=== PATIENT | female | born 1995 | race Caucasian/White ===

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

== ENCOUNTER 2018-11-14 11:23 | Day surgery (SDC) | payer OTHER, BC ==
[~2018-11-14 11:23] MED LIST: Buffered Lidocaine 1% SYRIN* 1 ML/SYRINGE INTRADERM ONE; Lactated Ringers 1000 ML Bag* 1,000 ML IV SCH
[2018-11-14] MEDS ORDERED: ceFAZolin 2 GM in NS PREMIX(*) 2 GM/100 ML BAG IVPB ONE (11:36)
[2018-11-14] MEDS ORDERED: Lidocaine 2% PF * 5 ML VIAL ONE (12:18)
[2018-11-14] MEDS ORDERED: Propofol* 10 MG/ML 20 ML BTL ONE ×2 (12:18→12:59)
[2018-11-14] MEDS ORDERED: fentaNYL* 50 MCG/ML 2 ML VIAL (100 MCG VIAL) ONE (12:19)
[2018-11-14] MEDS ORDERED: Midazolam* 1 MG/ML 2 ML VIAL (2 MG) ONE (12:19)
[2018-11-14] MEDS ORDERED: Remifentanil* 2 MG VIAL ONE (13:06)
[2018-11-14] MEDS ORDERED: Ropivacaine 0.2% * 2 MG/ML VIAL ONE (13:06)
[2018-11-14] MEDS ORDERED: Lidocaine 1% w EPI 1:200,000* 30 ML VIAL ONE (13:06)
[2018-11-14] MEDS ORDERED: Ketorolac INJ* 30 MG/ML 1 ML VIAL ONE (13:36)
[2018-11-14] MEDS ORDERED: Dexamethasone IV* 4 MG/ML 1 ML (4 MG) ONE (13:36)
[2018-11-14] MEDS ORDERED: Ondansetron INJ* 2 MG/ML VIAL ONE (13:36)
[2018-11-14] MEDS ORDERED: Metoclopramide IV* 5 MG/ML 2 ML VIAL ONE (13:36)
[2018-11-14] MEDS ORDERED: HYDROcodone/ACETAMIN 5-325 MG* 1 TAB PO PRN (13:54)
[2018-11-14] MEDS ORDERED: Acetaminophen TAB* 325 MG PO PRN (13:54)
[2018-11-14] MEDS ORDERED: DiMENhydriNATE IV* 50 MG/ML VIAL IV PUSH PRN (13:54)
[2018-11-14] MEDS ORDERED: fentaNYL* 50 MCG/ML 2 ML VIAL (100 MCG VIAL) IV PRN (13:54)
[2018-11-14] MEDS ORDERED: Naloxone* 0.4 MG/ML 1 ML VIAL IV PRN (13:54)
[2018-11-14] MEDS ORDERED: HYDROcodone/ACETAMIN 5-325 MG* 1 TAB ONE (15:29)
[2018-11-14 16:11] VITALS: BP 108/64
--- NOTE | 2018-11-14 17:18 | OP ---
DATE OF OPERATION: 11/14/18 - [facility] DATE OF : [birth year] SURGEON: Bety Howard MD. PLANT OPERATOR/SHIFT SUPERVISOR: DEB Ballard. An undertaker assistant was needed for the entirety of the case to help with positioning, retraction, and was utilized throughout all portions of the case. ANESTHESIOLOGIST: Dr. Denny. ANESTHESIA: General. PRE-OP DIAGNOSIS: Right knee medial meniscus retear. POST-OP DIAGNOSIS: Right knee medial meniscus retear. OPERATIVE PROCEDURE: Right knee medial meniscus repair through a separate incision using an outside-in technique. This is a revision surgery; please add 22 modifier due to complexity needing for a separate incision. COMPLICATIONS: None. ESTIMATED BLOOD LOSS: Minimal. TOURNIQUET TIME: Zero minutes. INDICATIONS: Yaneth Castro is a 23-year-old female who presents with a knee injury potentially several months ago versus a year ago. She has had a history of medial meniscus repair x2, one was all-inside, one was inside-out, and the most recent one was in 2013. She actually noticed an injury in 2015. She continued to struggle. She had a reinjury. She saw me. She has had at least 2 MRIs and the most recent one was unequivocal, but based on her examination and her failure of conservative management, she rehabbed the last injury for 6 months with still issues and this time she was having locking, catching pain and was unable to fully extend her knee. The MRI was not very helpful, but she did also have a revision surgery previously. The MRI demonstrated a possible horizontal meniscus tear. The patient continued to struggle. We reviewed the risks and benefits of surgery. Risks included, but are not limited to bleeding , infection, damage to nerves; vessels; surrounding structures, wound nonhealing , persistent pain, need for further surgery, scarring, stiffness, incomplete relief of symptoms, risks of anesthesia, risk of DVT, failure of the repair, risk of arthritis. She has elected to proceed. DESCRIPTION OF PROCEDURE: The patient was greeted in the preoperative area by the attending surgeon. Correct extremity was marked and consent was confirmed. The patient was brought back to the operating suite, where she was placed in the supine position on the operating table. She then underwent general anesthesia and LMA intubation, after which a lateral post was positioned. An unsterile tourniquet was placed high on the proximal thigh. The right leg was then prepped and draped in the usual sterile fashion beginning with chlorhexidine soap, scrub, and alcohol wipe, and a final prep with ChloraPrep. After appropriate surgical pause indicating the site, side, procedure, and administration of antibiotics, the knee was intra-articularly injected with 1% lidocaine with epi. An anterolateral incision was then made using an 11-blade. Scope was introduced into the joint and the joint was examined. There was synovitis anteriorly. Anteromedial portal was made in an outside-in fashion. Shaver was used to debride back the synovitic fat pad. There was a small area about the lateral femoral condyle with some mild chondrosis on the weightbearing zone, very medial part of the lateral femoral condyle, and this was debrided back and a small chondroplasty done. The patellofemoral joint had grade 0 to 1 changes. The medial and lateral gutters were intact without any loose debris. Once the synovitis was removed, attention was directed to the medial meniscus. There was evidence at the very medial aspect where her previous repair had happened that there was tearing from the capsule. There was patulous capsule that was present there. The meniscus quality was okay, but not perfectly normal. The decision was made to repair it because this patient is 23 years old and she would like to try for another repair that this is an option. We talked about the recovery time as her previous surgery she was nonweightbearing, but she had full range of motion post operative. She also may have injured this some time ago; but, because of where the tear was, at this point decision was made to try to repair this. The rasp was used to rasp the capsule because the most superior portion was good enough tissue as well as the back of the meniscus. Care was taken to try to preserve as much meniscus as possible. The previous sutures that were passed from the inside-out surgery were then debrided back. The sutures were then removed. They were cut and then taken out. At this point, the outside-in tray was opened and two 18-gauge needles were passed through the medial aspect of the knee in an outside-in fashion. Once they were appropriately positioned, a 2-0 PDS suture was then passed carefully. Once this was passed, a second suture was placed in a similar fashion percutaneously. I attempted to pass one more, but there was not a lot of space left and I did not want to damage the previously passed sutures. The tension on sutures brought the meniscus close to the capsule and closed the meniscocapsular separation. The decision was made to be satisfied with that. At this point, the scope was removed from the joint and a medial incision was made around where the sutures were. Soft tissues were carefully dissected to expose the capsule. When that was identified, the previous sutures were then passed through the wound instead of through the skin and then a 2-0 Ti-Cron was tied to the end of each of the PDS sutures and passed through. The 2-0 Ti-Crons were then tied down with the knee in about 30 degrees of flexion with some valgus stress due to the appropriate tightness. Care was taken not to overtighten or to pull through the capsule. At this point , once this was tied down, the scope was brought back to the joint and it was examined. There was a good amount of bleeding that was there at the site and the meniscus was found to be well approximated. At this point, the knee was taken to 90 degrees and the sutures still held traction. A Loami awl was then used to do bone marrow aspiration in the notch to allow for further bony bleeding and to allow for this to heal. The wounds were then copiously irrigated with sterile saline. Portals were closed with 3-0 nylon. The skin was closed in layers with 3-0 Monocryl in a subcutaneous and running fashion. Sterile dressings were applied. The wound was injected with 0.25% ropivacaine. The Cryo/Cuff was applied as well as a hinged knee brace with range of motion 0 to 60 degrees. She was awoken from anesthesia and transferred to the PACU in stable condition. POSTOPERATIVE PLAN: She will be nonweightbearing. She will be in the brace for approximately 4 weeks, first range of motion 0 to 60 degrees, then we will progress her slowly. DVT prophylaxis was considered, but deferred due to no previous personal or family history. I will see the patient back in 10 to 14 days. [id number]/[facility] #: [id number] VELVET
== END 2018-11-14 15:54 | disposition home or self-care (01) ==
LOC: OREAST 11:23
PROVIDERS: ATTEND Orthopaedic Surgery
DX: S83.241A Other tear of medial meniscus, current injury, right knee, initial encounter (principal); M25.461 Effusion, right knee; X50.0XXA Overexertion from strenuous movement or load, initial encounter; Y92.9 Unspecified place or not applicable; J45.909 Unspecified asthma, uncomplicated
CPT/HCPCS: 81025; J0690; J1100; J1885; J2001; J2250; J2405; J2704; J2765; J2795; J3010

== ENCOUNTER 2019-05-17 01:06 | Emergency (ER) | payer BC, OTHER ==
--- NOTE | 2019-05-17 01:50 | ED ---
Substance Abuse/Use - HPI Summary HPI Summary: Pt is a 23 y/o F presenting to the ED brought in by EMS and [facility] on a 22.09 and 9.41. LEVEL 5 CAVEAT: Pts full hx and physical is unobtainable d/t EtOH intoxication. She admits alcohol use, denies drug use. She reported SI to triage nurse, EMS, and [facility]. She states she is here because shes crazy. She sees a counselor and has daily medication. She reports nausea. - History Of Current Complaint Chief Complaint: EDMentalHealth Stated Complaint: ETOH PER EMS Time Seen by Provider: 05/17/19 01:08 Hx Obtained From: Patient, EMS ?: No - IUD Onset/Duration of Drug/ETOH Abuse: Hours Overdose Characteristics: Oral Timing Of Abuse: Binge Use Severity Initially: Moderate Severity Currently: Moderate Character: Depressed, Anxious, Lethargic, Stuporous Aggravating Factor(s): Nothing Alleviating Factor(s): Nothing Associated Signs And Symptoms: Nausea Related Hx: Suicidal - Allergies/Home Medications Allergies/Adverse Reactions: Allergies Allergy/AdvReac Type Severity Reaction Status Date / Time No Known Allergies Allergy Verified 05/17/19 02:01 Home Medications: Home Medications NK [No Home Medications Reported] 05/17/19 [History Confirmed 05/17/19] PMH/Surg Hx/FS Hx/Imm Hx Previously Healthy: Yes Endocrine/Hematology History: Reports: Hx Anemia - hx Denies: Hx Diabetes Cardiovascular History: Denies: Hx Hypertension, Hx Pacemaker/ICD Respiratory History: Reports: Hx Asthma - excersized as a child Denies: Other Respiratory Problems/Disorders GI History: Reports: Other GI Disorders - colitis as a child History: Denies: Hx Renal Disease Musculoskeletal History: Reports: Hx Orthopedic Injury - r and l labral tears, r meniscal/mcl repair, Other Musculoskeletal History - right knee r/t injury Sensory History: Reports: Hx Contacts or Glasses - glasses Denies: Hx Hearing Aid Opthamlomology History: Reports: Hx Contacts or Glasses - glasses Psychiatric History: Reports: Hx Anxiety - "hyperventilation" Denies: Hx Panic Disorder - Surgical History Surgery Procedure, Year, and Place: 3 repairs of acetabular labrum- bilateral; 2 surgeries on r knee to reattach meniscus to MCL. LATERAL RELEASE IN LEFT KNEE 2013 Hx Anesthesia Reactions: Yes - nausea Infectious Disease History: No Infectious Disease History: Denies: Traveled Outside the [place] in Last 30 Days - Family History Known Family History: Negative: Cardiac Disease, Diabetes - Social History Alcohol Use: Occasionally Alcohol Amount: 2 per week Hx Substance Use: No Substance Use Type: Reports: None Hx Tobacco Use: No Smoking Status (MU): Never Smoked Tobacco Review of Systems - ROS Summary Review of Systems Summary: Home Medications Medication Instructions Recorded Confirmed Type Acetaminophen [Tylenol] 650 mg PO DAILY PRN 11/10/18 11/10/18 History Positive: Nausea Positive: Anxious, Depressed All Other Systems Reviewed And Are Negative: No Physical Exam - Summary Physical Exam Summary: General: Well-developed, thin female. No acute distress. HEENT: Normocephalic, Atraumatic. Eyes: Conjuctiva normal, PERRL. Oropharynx: Clear, mucous membranes moist, (-) exudates. Neck: Soft, FROM, (-) lymphadenopathy, (-) thyromegaly, (-) JVD. Cardiovascular: Normal sinus rhythm, (-) murmur. Lungs: Clear to auscultation bilaterally (-) wheezes, (-) rales, (-) rhonchi. Abdomen: Soft, non-tender, non-distended, (-) organomegaly, normal bowel sounds. Back: (-) CVA tenderness Extremities: No edema. Skin: Warm, dry, (-) rash. Neuro: Sleepy but rousable. Psychiatric: Alternates from crying to anxious-appearing, and is moderately agitated at times. Triage Information Reviewed: Yes Vital Signs On Initial Exam: Initial Vitals Temp Pulse Resp BP Pulse Ox 97.8 F 99 15 115/76 97 05/17/19 01:17 05/17/19 01:17 05/17/19 01:17 05/17/19 01:17 05/17/19 01:17 Vital Signs Reviewed: Yes Completion Of Physical Exam Limited Due To: Level 5 Procedures - Sedation Patient Received Moderate/Deep Sedation with Procedure: No Diagnostics - Vital Signs Vital Signs Temp Pulse Resp BP Pulse Ox 05/17/19 01:17 97.8 F 99 15 115/76 97 - Laboratory Result Diagrams: 05/17/19 02:05 05/17/19 02:06 Lab Statement: Any lab studies that have been ordered have been reviewed, and results considered in the medical decision making process. Course/Dx - Course Course Of Treatment: 23-year-old female with acute alcohol intoxication. Patient has been telling multiple people today she wants to kill herself. At times she will deny that but then say again that she wants to kill herself. She calls herself crazy. She is a very poor historian at this time. Unable to obtain an adequate history or review of systems from the patient. Patient rests overnight. Given time to sober up awaiting mental health evaluation. Patient signed out at change of shift. - Diagnoses Provider Diagnoses: Alcohol intoxication Discharge ED - Sign-Out/Discharge Documenting (check all that apply): Sign-Out Patient - sobriety Signing out patient TO: Nnamdi Hsu - Discharge Plan Referrals: [facility] [Outside] - Attestation Statements Document Initiated by Justine: Yes Documenting Scribe: Jyothi Mcnair Provider For Whom Justine is Documenting (Include Credential): Juliana Mckinney MD. Scribe Attestation: Jyothi Chavez scribed for Juliana Mckinney MD. on 05/17/19 at 0516. Scribe Documentation Reviewed: Yes Provider Attestation: The documentation as recorded by the Jyothi doherty accurately reflects the service I personally performed and the decisions made by Juliana skaggs MD. Status of Scribe Document: Viewed
[2019-05-17 02:08] LABS: Urine Appearance Clear; Urine Bilirubin Negative (Negative); Urine Blood Negative (Negative); Urine Color Straw; Urine Glucose Negative (Negative); Urine Ketones Negative (Negative); Urine Nitrite Negative (Negative); Urine Protein Negative (Negative); Urine Specific Gravity 1.002 (1.010-1.030); Urine Urobilinogen Negative (Negative)
[2019-05-17 02:13] LABS: ABS Basophils 0.1 10^3/ul (0-0.2); ABS Eosinophils 0.1 10^3/ul (0-0.6); ABS Lymphocytes 3.2 10^3/ul (1.0-4.8); ABS Monocytes 0.7 10^3/ul (0-0.8); ABS Neutrophils 4.8 10^3/ul (1.5-7.7); Eosinophil % 0.8 %; Hematocrit 40 % (35-47); Hemoglobin 13.9 g/dL (12.0-16.0); Lymphocyte % 36.1 %; Mean Corpuscular HGB Conc 35 g/dL (31-36); Mean Corpuscular Hemoglobin 31 pg (27-31); Mean Corpuscular Volume 89 fL (80-97); Platelet Count 346 10^3/uL (150-450); Red Blood Count 4.48 10^6 /uL (3.70-4.87); Red Cell Distribution Width 12 % (10-15); White Blood Count 8.9 10^3/uL (3.5-10.8)
[2019-05-17 02:29] LABS: ALT 32 U/L (7-52); AST 36 U/L (13-39); Albumin 4.8 g/dL (3.2-5.2); Albumin/Globulin Ratio 1.8 (1-3); Alkaline Phosphatase 50 U/L (34-104); Anion Gap 9 mmol/L (2-11); BUN/Creatinine Ratio 16.7 (8-20); Blood Urea Nitrogen 11 mg/dL (6-24); CO2 Carbon Dioxide 25 mmol/L (22-32); Chloride 110 mmol/L (101-111); EGFR African American 136.8 (>60); EGFR Non-African American 113.1 (>60); Globulin 2.6 g/dL (2-4); Glucose 93 mg/dL (70-100); Potassium 3.7 mmol/L (3.5-5.0); Sodium 144 mmol/L (135-145); Total Protein 7.4 g/dL (6.4-8.9)
[2019-05-17 02:32] LABS: Acetaminophen < 15 mcg/mL; Alcohol 305 mg/dL (<10); Salicylate < 2.50 mg/dL (<30)
[2019-05-17 02:36] LABS: HCG Pregnancy < 0.60 mIU/mL
[2019-05-17 02:40] LABS: Urine Benzodiazepine Screen None Detected (None Detect); Urine Opiates Screen None Detected (None Detect)
[2019-05-17 02:48] LABS: TSH (Thyroid Stimulating Horm) 1.42 mcIU/mL (0.34-5.60)
--- NOTE | 2019-05-17 07:14 | ED ---
Progress - Progress Note Progress Note: This pt is a sign out to Dr. Hsu from Dr. Mckinney at shift change 05/17/2019 0700 pending sobriety and a MHE. Course/Dx - Course Course Of Treatment: This pt is a sign out to Dr. Hsu from Dr. Mckinney at shift change 05/17/2019 0700 pending sobriety and a MHE. Pt is awake and alert. Clinically sober without any SI or HI. Feels safe for discharge home with boyfriend. 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 She will be discharged home with a Dx of acute alcohol intoxication. - Diagnoses Provider Diagnoses: Alcohol intoxication Discharge ED - Sign-Out/Discharge Documenting (check all that apply): Patient Departure - discharge , Receiving Sign-Out Receiving patient FROM: Juliana Mckinney - Discharge Plan Condition: Stable Disposition: HOME Patient Education Materials: Alcohol Intoxication (ED) Referrals: [facility] @ [facility] [Outside] - 2 Days Additional Instructions: PLEASE FOLLOW UP WITH [facility] IN 1-3 DAYS AND RETURN TO THE EMERGENCY DEPARTMENT FOR ANY NEW OR WORSENING SYMPTOMS. - Attestation Statements Document Initiated by Scribe: Yes Documenting Scribe: Apollo Garcia Provider For Whom Scribe is Documenting (Include Credential): Nnamdi Hsu DO Scribe Attestation: Apollo Chavez, scribed for Nnamdi Hsu DO on 05/17/19 at 1148. Status of Scribe Document: Ready
--- OUTSIDE RECORDS SUMMARY | 2019-05-17 07:55 | XMS REPORT | Continuity of Care Document ---
:1995 External Reference #:[id number] Author Name Bety Howard MD (transmitted by agent of provider Roberto Valderrama) Address [address], [place] [address] Care Team Providers Name Role Phone [facility] Care Team Information [employer] [phone] Problems Active Problems Provider Date Knee joint effusion Bety Howard MD Onset: 10/11/2018 Knee pain Bety Howard MD Onset: 10/11/2018 Current tear of medial cartilage AND/OR meniscus Bety Howard MD Onset: 03/2019 of knee Derangement of knee Bety Howard MD Onset: 04/18/2019 Fall Bety Howard MD Onset: 04/18/2019 Social History Type Date Description Comments Sex Unknown ETOH Use Occasionally consumes alcohol Tobacco Use Start: Unknown Patient has never smoked Smoking Status Reviewed: 04/18/19 Patient has never smoked Exercise Type/Frequency Exercises regularly Allergies, Adverse Reactions, Alerts Description No Known Drug Allergies Medications Active Medications SIG Qnty Indications Ordering Provider Date Hydroxyzine 0.25 MG tid Unknown History Medications Medrol take as directed 21units S83.241D Bety Howard, 02/07/2019 - 4mg TBPK by packaging 04/17/2019 No Active Unknown 11/24/2018 - Medications 02/07/2019 Keflex 1 tab PO three 12caps Thien Hightower, 11/18/2018 - 500mg times daily x 7 MD 11/24/2018 Capsules days total Percocet 1 - 2 tabs by 30tabs Bety Howard, 11/14/2018 - 5-325mg mouth every 4 - 6 11/24/2018 Tablets hours as needed for pain. Keflex take 1 tab by pako Hightower, 11/14/2018 - 500mg mouth 3 times a MD 11/24/2018 Capsules day x 7 days until finished. Immunizations Description No Information Available Vital Signs Date Vital Result Comment 04/18/2019 11:22am Height 62 inches 5'2" Weight 130.00 lb pt stated preferred due to pain Heart Rate 74 /min BP Systolic 130 mmHg BP Diastolic 74 mmHg Respiratory Rate 17 /min Body Temperature 98.0 F Pain Level 6 BMI (Body Mass Index) 23.8 kg/m2 03/14/2019 3:30pm Height 62 inches 5'2" Weight 130.00 lb Heart Rate 79 /min BP Systolic 120 mmHg BP Diastolic 70 mmHg Respiratory Rate 16 /min Body Temperature 98.3 F Pain Level 1 O2 % BldC Oximetry 99 % BMI (Body Mass Index) 23.8 kg/m2 Results Description No Information Available Procedures Date Code Description Status 11/14/2018 04479 Arthroscopy,Knee,Meniscus Repair Medial Or Lateral Completed 11/14/2018 54555 Arthroscopy,Knee,Meniscus Repair Medial Or Lateral Completed Medical Devices Description No Information Available Encounters Type Date Location Provider Dx Diagnosis Office Visit 03/14/2019 [facility] Bety Howard MD S83.241D Oth tear of 3:15p at [place] medial meniscus, current injury, r knee, subs Office Visit 10/25/2018 [facility] Bety Howard MD S83.241A Oth tear of 2:15p at [place] medial meniscus, current injury, r knee, init M25.461 Effusion, right knee Assessments Date Code Description Provider 04/18/2019 S83.241D Other tear of medial meniscus, current Bety Howard MD injury, right knee, s 04/18/2019 W19.xxxA Unspecified fall, initial encounter Bety Howard MD 04/18/2019 M23.631 Other spontaneous disruption of medial Bety Howard MD collateral ligament of right knee 03/14/2019 S83.241D Other tear of medial meniscus, current Bety Howard MD injury, right knee, s 02/07/2019 S83.241D Other tear of medial meniscus, current Bety Howard MD injury, right knee, s 01/10/2019 S83.241D Other tear of medial meniscus, current Bety Howard MD injury, right knee, s 01/10/2019 M25.561 Pain in right knee Bety Howard MD 12/19/2018 S83.241D Other tear of medial meniscus, current Darlene Lantigua PA-C injury, right knee, s 12/01/2018 S83.241D Other tear of medial meniscus, current Bety Howard MD injury, right knee, s 11/24/2018 S83.241D Other tear of medial meniscus, current Bety Howard MD injury, right knee, s 11/14/2018 S83.241A Other tear of medial meniscus, current BRITTANY Ballard injury, right knee, i 11/14/2018 S83.241A Other tear of medial meniscus, current Bety Howard MD injury, right knee, i 10/25/2018 S83.241A Other tear of medial meniscus, current Bety Howard MD injury, right knee, i 10/25/2018 M25.461 Effusion, right knee Bety Howard MD Plan of Treatment Future Appointment(s):05/23/2019 10:15 am - Bety Howard MD at [id number]/18/2019 - Bety Howard MDS83.241D Other tear of medial meniscus, current injury, right knee, sFollow up:Follow up: 4 [id number] Unspecified fall, initial [id number] Other spontaneous disruption of medial collateral ligament of right knee Functional Status Description No Information Available Mental Status Description No Information Available Referrals Description No Information Available
[2019-05-17 11:56] VITALS: BP 128/78
== END 2019-05-17 11:57 | disposition home or self-care (01) ==
LOC: ED 01:06
DX: F10.929 Alcohol use, unspecified with intoxication, unspecified (principal); D64.9 Anemia, unspecified; F41.9 Anxiety disorder, unspecified
CPT/HCPCS: 36415; 80053; 80307; 80320; 80329; 81003; 84443; 84702; 85025; 99283; G0480